=== PATIENT | female | born 1955 | race Caucasian/White ===

== ENCOUNTER → 2021-03-21 03:07 | Outpatient (CLI) | payer OTHER, SELFPAY ==
[2021-03-21 19:50] LABS: SARS-CoV-2 RNA PCR Negative
== END ==
PROVIDERS: PCP Family Medicine; Visit Provider Obstetrics & Gynecology Gynecology
DX: Z01.812 Encounter for preprocedural laboratory examination (principal); Z20.822 Contact with and (suspected) exposure to COVID-19
CPT/HCPCS: C9803; U0003; U0005

== ENCOUNTER 2021-03-21 10:29 | Outpatient (CLI) | payer OTHER, SELFPAY ==
[2021-03-21 09:00] LABS: Anion Gap 8 mmol/L (8-16); Blood Urea Nitrogen 13 mg/dL (7-17); Calcium 9.5 mg/dL (8.4-10.2); Carbon Dioxide 30 mmol/L (22-30); Chloride 103 mmol/L (98-107); Estimated Glomerular Filt Rate > 60; Glucose 105 mg/dL (65-105); Potassium 3.8 mmol/L (3.4-5.0); Sodium 141 mmol/L (137-145)
== END 2021-03-21 10:30 | disposition home or self-care (01) ==
LOC: ANHSURGERY 03-28 10:29
PROVIDERS: Anesthesiology; PCP Family Medicine; Visit Provider Obstetrics & Gynecology Gynecology
DX: Z01.818 Encounter for other preprocedural examination (principal); Z51.81 Encounter for therapeutic drug level monitoring
CPT/HCPCS: 36415; 80048

== ENCOUNTER 2021-03-24 00:06 | Day surgery (SDC) | payer OTHER, SELFPAY ==
[2021-03-13 08:14] VITALS: BMI 43.3
[2021-03-24 06:53] VITALS: BMI 43.8
[2021-03-24] MEDS: ACETAMINOPHEN 500 MG TABLET 1000 MG PO (07:04)
--- NOTE | 2021-03-24 07:08 | P.HP_ITS ---
History of Present Illness History of Present Illness Consent: Risks, benefits, and alternatives have been discussed and questions answered. Patient agrees to proceed with procedure. Chief complaint: post menopausal bleeding Narrative: Alissa Bustos is a 65 year old female who is new to us in December of 2020. She was referred by her primary physician. The patient has a history of postmenopausal bleeding in 2019 and underwent a D& C. Findings were benign and she was told she should stop bleeding. Patient continued to have bleeding almost every day at least weekly since that time. She did have an ultrasound done in 2019 which she states was normal. Due to the persistent abnormal bleeding who was recommended to repeat the hysteroscopy with D&C. Risks of infection, bleeding, and perforation were reviewed. Possible pathology was discussed. Patient agrees to proceed. Review of Systems Psychiatric: Psychiatric: Reports other (Anxiety) Allergic/Immunologic: Allergic/Immunologic: Reports other (Hay fever) [facility] Past Medical History Medical History (Updated 03/24/21 @ 07:11 by Shama Romero MD) HTN (hypertension) Surgical History Surgical History (Updated 03/24/21 @ 07:11 by Shama Romero MD) History of 3 sections S/P D&C (status post dilation and curettage) 2019 Social History Social History Smoking status: Never smoker Substance use: never Living arrangements: with family Additional living arrangements comments: [facility] Spiritual care concerns: No Meds Home Medications and Allergies Home Medications Medication Instructions Recorded Confirmed Type cetirizine [Zyrtec] 10 mg PO DAILY 03/13/21 03/24/21 History lisinopril-hydrochlorothiazide 1 tablet PO QAM 03/13/21 03/24/21 History multivitamin [Multiple Vitamin] 1 tablet PO DAILY 03/13/21 03/24/21 History Allergies Allergy/AdvReac Type Severity Reaction Status Date / Time No Known Allergies Allergy Verified 03/24/21 06:53 Exam Const: General: healthy appearing and alert Orientation/consciousness: patient oriented x3 Resp: Effort & Inspection: normal respiratory effort Auscultation: clear to auscultation bilaterally Cardio: Rate: regular rate Rhythm: regular rhythm GI: GI Palp: Yes Soft to palpation, No Tenderness to palpation present (GI) and No Palpable mass present : External Female Exam: normal external appearance Speculum Exam - Vagina: normal appearance of the vagina, normal vaginal discharge, vagina atrophic and other (Blood present) Speculum Exam - Cervix: normal appearance of the cervix Bimanual exam- vagina & uterus: uterine size normal and consistency normal Bimanual Exam- Adnexa, other: normal adnexae and No adnexal tenderness Neuro: General: patient oriented x3 Assessment and Plan Assessment and plan (1) Post-menopausal bleeding: Code(s): N95.0 - Postmenopausal bleeding Status: Acute Assessment and Plan: Plan to proceed with D&C hysteroscopy
--- NOTE | 2021-03-24 07:08 | WPDHPUPDATE1 ---
History and Physical Update Update Date/Time: 03/24/21 07:08 History and Physical has been reviewed, including an updated exam of the patient. There are NO changes in the patient's condition. Risks, benefits, and alternatives have been discussed and questions answered. Patient agrees to proceed with procedure.
[2021-03-24] MEDS: LACTATED RINGERS 1,000 ML 30 ML IV CONT (07:15)
[2021-03-24 07:18] VITALS: BP 114/59; PULSE 63; RESP 18; TEMP 36.2; O2SAT 100
--- NOTE | 2021-03-24 07:31 | P.PNAN_ITS ---
Anes - Initial Pre Proc Eval Procedure: Operation Date: 03/24/21 08:30 Proposed Procedures p Hysteroscopy, Dilation and Curettage - Shama Romero MD Date/Time: 03/24/21 07:31 Surgeon: Shama Romero MD Pre Op Diagnosis: post menopausal bleeding Patient Data Age: 65 Gender: F Height: 1.55 m Weight: 105.2 kg Last Vital Signs Temp 36.2 C L 03/24/21 07:18 Pulse 63 03/24/21 07:18 Resp 18 03/24/21 07:18 BP 114/59 L 03/24/21 07:18 Pulse Ox 100 03/24/21 07:18 Allergies Allergy/AdvReac Type Severity Reaction Status Date / Time No Known Allergies Allergy Verified 03/24/21 06:53 Home Medications Medication Instructions Recorded Confirmed Type cetirizine [Zyrtec] 10 mg PO DAILY 03/13/21 03/24/21 History lisinopril-hydrochlorothiazide 1 tablet PO QAM 03/13/21 03/24/21 History multivitamin [Multiple Vitamin] 1 tablet PO DAILY 03/13/21 03/24/21 History Patient hx anesthesia problems: none Family hx anesthesia problems: none [facility] Past Medical History Medical History (Updated 03/24/21 @ 07:11 by Shama Romero MD) HTN (hypertension) Surgical History Surgical History (Updated 03/24/21 @ 07:11 by Shama Romero MD) History of 3 sections S/P D&C (status post dilation and curettage) 2019 Social History Social History Smoking status: Never smoker Substance use: never Living arrangements: with family Additional [facility] comments[facility] Spiritual care concerns: No Anes - Eval Final PreProcedure Day of Procedure 03/24/21 07:31 Patient weight: morbidly obese Heart: regular rate and rhythm Lungs: clear to auscultation and normal air movement Airway: Mallampati scale class III Neurological: alert and oriented Last oral intake: >/= 8 hours ASA classification: III Emergent: no Anesthetic plan: proceed Anesthesia type and monitoring: general GIVS and standard monitoring Informed Consent: The patient's anesthetic plan and its attendant risks and benefits were discussed with the patient/family/POA. Questions were solicited and answers provided to the satisfaction of the patient/family/POA.
[2021-03-24] MEDS: KETOROLAC 30 MG/ML VIAL (*BKC) 15 MG IV PUSH (08:24)
--- NOTE | 2021-03-24 08:43 | W.PM.PROC2 ---
Procedure Note - Detailed Date of Procedure 03/24/21 Pre-op Diagnosis post menopausal bleeding Post-op Diagnosis same Procedure Performed D& C hysteroscopy with MyoSure resection Surgeon Shama Romero MD Anesthesia MAC and local Findings Cervix is stenotic; uterus measures to 8cm; there is a polyp noted the left sidewall and a vascular calcified mass anteriorly; generally thickened endometrium anterior Description of Procedure The patient was taken to the operating room and placed under anesthesia in the dorsal lithotomy position. The bivalve speculum was placed in the vagina, cervix is grasped on the anterior lip with a tenaculum, and injected with 1% lidocaine in each quadrant. The os is noted to be stenotic therefore the os Finders were used to open the internal os. The cervix is serially dilated with Hegar. The diagnostic hysteroscope was placed with stated findings. The MyoSure device is opened and placed and the lesions are resected under direct visualization. The thickened endometrium anteriorly is also resected with the MyoSure. All instruments were then removed and the patient is awakened from anesthesia in stable condition. Sponge, instrument, and needle counts are correct per the OR staff. Estimated Blood Loss 5 Drains No Packing No Pathology yes (Endometrial shavings and curettings) Complications No immediate complications Condition stable Disposition PACU
[2021-03-24 08:49] VITALS: BP 122/45; PULSE 65; RESP 16; O2SAT 100
[2021-03-24 09:19] VITALS: BP 116/61; PULSE 62; RESP 16; O2SAT 99
[2021-03-24 09:35] VITALS: BP 118/68; PULSE 65; RESP 16; O2SAT 99
== END 2021-03-24 09:45 | disposition home or self-care (01) ==
PROVIDERS: PCP Family Medicine; Visit Provider Obstetrics & Gynecology Gynecology
PROC: 0U5B8ZZ Destruction of Endometrium, Via Natural or Artificial Opening Endoscopic (ICD-10-PCS; CPT 58563; principal; 2021-03-24 08:30)
DX: N95.0 Postmenopausal bleeding (principal); N85.00 Endometrial hyperplasia, unspecified; E66.01 Morbid (severe) obesity due to excess calories; Z68.41 Body mass index [BMI] 40.0-44.9, adult; I10 Essential (primary) hypertension
CPT/HCPCS: 58558; 88305; A9270; J1885; J2250; J2704; J3010; J7030; J7120